=== PATIENT | female | born 1980 | race Two or more races ===

== ENCOUNTER → 2020-09-20 | Outpatient (CLI) | payer OTHER ==
--- NOTE | 2020-09-21 07:57 | REP ---
INDICATION: R10.2- PELVIC AND PERINEAL PAIN COMPARISON: None. TECHNIQUE: Transvaginal ultrasound examination for better evaluation of the endometrium and adnexa with color Doppler evaluation of the ovaries. FINDINGS: Bladder is collapsed. Heterogeneous anteverted uterus measures 8.6 x 3.7 x 5.0 cm. The endometrial complex measures 2.7 mm in thickness excluding a small amount of endocervical fluid. Posterior fibroid measures 2.0 x 1.5 x 1.7 cm.. Bilateral ovaries are normal in appearance and vascularity without evidence for torsion. Right ovary measures 4.0 x 2.4 x 2.6 cm and includes 2.0 x 1.6 x 1.7 cm physiologic cyst and 2.1 x 2.0 x 2.1 cm septated presumed physiologic cyst; R I = 0.56. Left ovary measures 2.5 x 1.8 x 2.8; R I = 0.37. No pelvic fluid or adnexal mass lesion IMPRESSION: 1. Heterogeneous uterus with small anterior fibroid. 2. Right ovarian cysts likely physiologic. Consider re-evaluation in 4-6 weeks to evaluate for resolution if symptoms persist. <Electronically signed by Osbaldo Barreto > 09/21/20 [id number]
== END ==
LOC: M RAD 15:13
PROVIDERS: ATTEND Obstetrics & Gynecology Gynecology
DX: R10.2 Pelvic and perineal pain (principal)

== ENCOUNTER → 2021-10-14 | Outpatient (CLI) | payer OTHER ==
[2021-10-14 17:31] LABS: PROGESTERONE 0.69 NG/ML
== END ==
LOC: M ADAMS 15:06
PROVIDERS: ATTEND Internal Medicine
DX: N95.9 Unspecified menopausal and perimenopausal disorder (principal)

== ENCOUNTER → 2021-12-17 | Outpatient (CLI) | payer OTHER ==
[2021-12-17 17:56] LABS: HEMOGLOBIN A1c 5.2 %
== END ==
LOC: M ADAMS 14:56
DX: R73.09 Other abnormal glucose (principal); R76.11 Nonspecific reaction to tuberculin skin test without active tuberculosis